=== PATIENT | female | born 1975 | race African-American/Black ===

== ENCOUNTER 2017-02-10 07:09 | Emergency (ER) | payer SELFPAY ==
[~2017-02-10] VITALS: Ht 167.6 cm; Wt 103.2 kg
[~2017-02-10 07:09] MED LIST: MOTRIN IB200 MG PO; Motrin PO; Percocet 5/325,Endoc PO
[2017-02-10] MEDS ORDERED: ULTRAM50 MG PO (08:44)
[2017-02-10] MEDS ORDERED: NAPROSYN500 MG PO (08:44)
[2017-02-10 09:03] VITALS: BP 137/90
== END 2017-02-10 09:04 | disposition home or self-care (01) ==
LOC: EME 07:09
DX: M79.671 Pain in right foot (principal); M77.31 Calcaneal spur, right foot; F17.200 Nicotine dependence, unspecified, uncomplicated; Z90.710 Acquired absence of both cervix and uterus
CPT/HCPCS: 73630; 99281; 99284